=== PATIENT | female | born 1990 | race Two or more races ===

== ENCOUNTER 2019-02-18 22:33 | Emergency (ER) | payer MEDICAID ==
[~2019-02-18] VITALS: Ht 127 cm; Wt 94.8 kg
[2019-02-18 22:38] VITALS: Ht 127 cm; Wt 94.8 kg
[2019-02-19 00:14] VITALS: BP 118/59
== END 2019-02-19 00:14 | disposition home or self-care (01) ==
LOC: ED 22:33
DX: J20.9 Acute bronchitis, unspecified (principal); J02.9 Acute pharyngitis, unspecified
CPT/HCPCS: J1885; J7512; J7620; Q0092